=== PATIENT | male | born 1955 | race Caucasian/White ===

== ENCOUNTER 2023-12-18 12:49 | Emergency (ER) | payer MEDICARE, OTHER, SELFPAY ==
[2023-12-18 12:56] VITALS: BP 149/85
[2023-12-18 14:00] LABS: % Basophils 0.6 % (0-2); % Eosinophils 1.2 % (0-6); % Immature Granulocytes 0.6 % (0-0.5); % Lymphocytes 28.6 % (20.5-51.1); % Monocytes 9.8 % (1.7-9.3); % Neutrophils 59.2 % (42.2-75.2); Absolute Basophils 0.1 10^3/uL (0-0.2); Absolute Eosinophils 0.1 10^3/uL (0-0.7); Absolute Immature Granulocytes 0.1 10^3/uL (0-0.05); Absolute Neutrophils 6.2 10^3/uL (1.4-6.5); Hematocrit 45.6 % (39.0-52.0); Hemoglobin 15.5 g/dL (13.0-18.0); Mean Corpuscular Hgb 29.9 pg (27.0-31.0); Mean Corpuscular Volume 87.9 fL (80.0-94.0); Mean Platelet Volume 9.9 fL (7.4-10.4); Nucleated Red Blood Cells % 0 % (-); Platelet Count 271 10^3/uL (130-400); Red Blood Cell Count 5.19 10^6/uL (4.70-6.10); Red Cell Dist. Width 12.4 % (11.5-14.5); White Blood Cell Count 10.5 10^3/uL (4.8-10.8)
[2023-12-18 14:12] LABS: ALT (SGPT) 36 U/L (0-50); AST (SGOT) 33 U/L (17-59); Albumin 4.8 g/dl (3.5-5.0); Alkaline Phosphatase 96 U/L (38-126); Blood Urea Nitrogen 21 mg/dl (9-20); Calcium 9.8 mg/dl (8.4-10.2); Carbon Dioxide 25 mmol/L (22-30); Chloride 101 mmol/L (98-107); Glucose 100 mg/dl (70-99); Potassium 3.6 mmol/L (3.5-5.1); Sodium 142 mmol/L (135-145); Total Bilirubin 0.5 mg/dl (0.2-1.3); Total Protein 7.6 g/dl (6.3-8.2); eGFR > 60.00
[2023-12-18 14:23] LABS: Troponin I < 0.012 ng/ml
--- NOTE | 2023-12-18 14:27 | EDRN ---
Pt states symptoms started on Thursday w/ coughing, sore throat and sinus stuffyness and was seen by PCP who started patient on a 4 day course of antibiotic and steroids. Pt called PCP as symptoms continued by was informed that he would need to wait
for symptoms improvement. Today pt developed R lower chest pain when lying on R side, breathing in and coughing. Pt was diagnosed w/ PNA in R side at [facility] visit. Pt states he tested negative for strep and COVID on Thursday at PCP visit. Pt
states he has only had relief of throat pain w/ cepachlor and nasal/sinus congestion w/ astelin nasal spray. Pt also states that [facility] also said that they did not like his EKG.
--- NOTE | 2023-12-18 14:29 | ED.GENMED ---
History of Present Illness
General
Chief Complaint: Pneumonia Symptoms
Source: patient
Exam Limitations: none
Time Seen by Provider: 12/18/23 14:01
Nursing documentation reviewed up to this point in time: agreed with
History of Present Illness
History of Present Illness:
Stupid patient is a 68-year male who presents to the ER for evaluation. 1 week ago patient started with a cough and sore throat. Seen by family doctor tested negative for strep throat took a home COVID test which was negative. He was prescribed
antibiotic and steroids by his family doctor but Thursday was no better. He still has a cough however 2 days ago noticed some pain in his right lower rib. He went to urgent care today and was told he had pneumonia and sent to the ER and also had a
normal EKG.
He reports pain in the right lateral rib areas only with deep breath or with coughing. He denies any fever or chills. He is not short of breath.
Past History
Past History
ED Past Medical History: HTN
ED Past Surgical History: None
Social History
Tobacco: Non-smoker
Alcohol: None
Review of Systems
Review of Systems
Allergies reviewed?: Yes
All Other Systems: ROS reviewed and negative except as documented in HPI and ROS
Constitutional: Reports no symptoms; Denies fever, fatigue or chills
EENT: Reports no symptoms
Respiratory: Reports cough; Denies trouble breathing
ABD/GI: Reports no symptoms
: Reports no symptoms
Musculoskeletal: Reports no symptoms
Skin: Reports no symptoms
Neurological: Reports no symptoms
Hematologic/Lymphatic: Reports no symptoms
Phy Exam
General Physical Exam
General Presentation: no apparent distress
General age: appears stated age
General Skin: warm and dry
General Habitus: normal
General Mental: alert
General Hydration: appears well hydrated
Cardiovascular Exam
Cardiovascular Exam: regular rate/rhythm, no murmur and normal peripheral pulses
Pulmonary Exam
Pulmonary Exam: lungs clear and no respiratory distress
Neurological Exam
Neurological Exam: alert and oriented x3
Musculoskeletal Exam
Musculoskeletal Exam: full ROM
Skin Exam
Skin Exam: normal color and warm/dry
Psychiatric Exam
Psychiatric Exam: normal mood/affect
Course
Orders/Labs/Results
Orders:
Orders
12/18/23 12:59
EKG [Electrocardiogram (*1)] Urgent
Reason for Study: Chest Pain
12/18/23 13:00
EKG- Treatment ONCE
12/18/23 13:44
Complete Blood Count/With Diff Urgent
Comprehensive Metabolic Panel Urgent
Troponin I Urgent
12/18/23 16:27
DDimer [D-Dimer] Urgent
Abnormal Lab Results
12/18/23
13:44
Abs Immat Gran (auto) 0.1 H 10^3/uL
(0-0.05)
Absolute Monos (auto) 1.0 H 10^3/uL
(0.1-0.6)
Immature Gran % 0.6 H %
(0-0.5)
Monocytes % 9.8 H %
(1.7-9.3)
BUN 21 H mg/dl
(9-20)
Glucose 100 H mg/dl
(70-99)
12/18/23 13:44
12/18/23 13:44
Vital Signs
Initial and Last Documented VS:
Initial Vital Signs
Temp Pulse Resp BP Pulse Ox
98.4 F 67 18 149/85 97
12/18/23 12:56 12/18/23 12:56 12/18/23 12:56 12/18/23 12:56 12/18/23 12:56
Last Documented Vital Signs
Temp Pulse Resp BP Pulse Ox
98.4 F 68 16 122/80 95
12/18/23 12:56 12/18/23 16:15 12/18/23 16:15 12/18/23 16:00 12/18/23 16:15
MDM/Problems Addressed
Differential Diagnosis Includes:
Not limited to viral syndrome, bronchitis, muscle rib pain, less likely PE
MDM/Problems Addressed:
Patient is documented started with cough several days ago/1 week ago was seen by family doctor prescribed antibiotics completed antibiotics however still has had cough. He presented from urgent care with concerns for possible pneumonia on x-ray .
He went to urgent care because of persistent cough and some right rib pain. His right rib pain is only with coughing or deep breath. He presents today awake alert no acute distress no prior history of DVT PE. He is nontachycardic nontachypneic
lungs are clear not hypoxic. I was able to insert the chest xray image into our system and reviewed with ED physician, no obvious pneumonia. Likely bronchitis. Because of pleuritic pain D-dimer was done and negative for PE. Symptoms are likely
will d/c home.
Chronic conditions affecting care:
Hypertension blood pressure mildly elevated here in triage
*Critical Care Note
Total Time (30-74mins, 75-104mins- exclusive of procedures): Not Applicable
ED Attending Note
-
Portions of this chart may have been created with voice recognition software.� Occasional wrong word or��sound alike� substitutions may have occurred due to the inherent limitations of voice recognition software.
Discharge Plan
Departure
Patient Disposition: Home (Routine Discharge)
Date of Disposition: 12/18/23
Time of Disposition: 17:12
Patient with high blood pressure during this ER visit?: Yes
Covid-19: Not Applicable
Discharge Problem:
Acute viral syndrome, Bronchitis
Instructions: Acute Bronchitis, Adult (DC), Viral Exanthem (DC), BLOOD PRESSURE
Activity Restrictions/Additional Instructions:
As discussed symptoms are consistent with viral syndrome, rib pain is likely muscular from coughing. May alternate with Tylenol and ibuprofen. Be sure to get plenty rest and stay well-hydrated. Follow-up with family doctor in the next several
days return if any worsening of symptoms.
Interventions
Interventions:
*Risk Screen - Suicide Last Done: 12/18/23 12:56
*General Assessment Last Done: 12/18/23 12:56
*Neglect/Abuse Screening Last Done: 12/18/23 12:56
ED- Fall Risk Assessment Last Done: 12/18/23 14:37
*ED COVID-19 Vaccine History Last Done: 12/18/23 12:56
ED- Cardiac Assessment Last Done: 12/18/23 14:40
ED- Pulmonary Assessment Last Done: 12/18/23 14:40
Discharge Date and Time
Print Language: [id number]
--- NOTE | 2023-12-18 14:30 | EDRN ---
Mariaelena Menon RECLAMATION SUPERVISOR in room w/pt at this time.
[2023-12-18 14:36] VITALS: BMI 29.0
[2023-12-18 14:40] VITALS: BP 140/89
[2023-12-18 15:00] VITALS: BP 139/83
[2023-12-18 16:00] VITALS: BP 122/80
[2023-12-18 16:52] LABS: D-Dimer 0.42 ug/mlFEU (0.00-0.50)
[2023-12-18 17:00] VITALS: BP 133/83
== END 2023-12-18 17:19 | disposition home or self-care (01) ==
LOC: EMR 12:49
PROVIDERS: Emergency Medicine; Nurse Practitioner; EMERGENCY PHYSICIAN Student in an Organized Health Care Education/Training Program; FAMILY PHYSICIAN Internal Medicine
DX: B34.9 Viral infection, unspecified (principal); J40 Bronchitis, not specified as acute or chronic; I10 Essential (primary) hypertension; Z87.01 Personal history of pneumonia (recurrent)
CPT/HCPCS: 99283; 80053; 84484; 85025; 85379; 93005

== ENCOUNTER → 2024-02-24 09:39 | Outpatient (REF) | payer MEDICARE, OTHER, SELFPAY | LOC: MRI 3T 09:39 | PROVIDERS: ATTENDING PHYSICIAN Specialist; FAMILY PHYSICIAN Internal Medicine | DX: R97.20 Elevated prostate specific antigen [PSA] (principal) | CPT/HCPCS: 72197; A9585 ==